=== PATIENT | female | born 1990 | race Caucasian/White ===

== ENCOUNTER 2021-05-15 00:02 | Emergency (ER) | payer MEDICAID ==
[~2021-05-15] VITALS: Ht 154.9 cm; Wt 77.2 kg
[~2021-05-15 00:02] MED LIST: PERM60CR4 TOP
[2021-05-15 01:21] VITALS: BP 120/89
[2021-05-15] MEDS ORDERED: ibuprofen tablet 400 MG TABLET PO ONE (01:55)
[2021-05-15] MEDS ORDERED: acetaminophen 325mg tablet PO ONE (01:55)
== END 2021-05-15 02:12 | disposition home or self-care (01) ==
LOC: ER 00:03
DX: S81.812A Laceration without foreign body, left lower leg, initial encounter (principal); S80.12XA Contusion of left lower leg, initial encounter; M79.604 Pain in right leg; Z88.2 Allergy status to sulfonamides; Z88.1 Allergy status to other antibiotic agents; Z79.899 Other long term (current) drug therapy; X58.XXXA Exposure to other specified factors, initial encounter; Y93.89 Activity, other specified; Y92.89 Other specified places as the place of occurrence of the external cause; Y99.8 Other external cause status
CPT/HCPCS: 73590; 99284

== ENCOUNTER 2022-01-01 15:53 | Emergency (ER) | payer MEDICAID ==
[~2022-01-01] VITALS: Ht 154.9 cm; Wt 74.5 kg
[2022-01-01 15:55] VITALS: BP 151/90
[2022-01-01] MEDS ORDERED: ketorolac trometh. 30mg/ml inj. IM ONE ×2 (17:00→19:11)
--- NOTE | 2022-01-01 17:15 | NUR ---
Pt would like to wait to receive Toradol medication until she can speak with the provider.
[2022-01-01] MEDS ORDERED: LORazepam 1 MG tablet PO ONE (19:10)
[2022-01-01] MEDS ORDERED: ACET-1025 PO (20:55)
== END 2022-01-01 21:09 | disposition home or self-care (01) ==
LOC: ER 15:54
DX: M54.50 Low back pain, unspecified (principal); Z88.2 Allergy status to sulfonamides; Z88.1 Allergy status to other antibiotic agents; Z79.899 Other long term (current) drug therapy
CPT/HCPCS: 72100; 96372; 99283; J1885